=== PATIENT | male | born 1965 | race Two or more races ===

== ENCOUNTER 2024-04-02 11:55 | Emergency (ER) | payer OTHER ==
[~2024-04-02] VITALS: Ht 177.8 cm; Wt 88.9 kg
[2024-04-02] MEDS ORDERED: KETOROLAC TROMETHAMINE 30 MG VIAL IM STA (13:08)
[2024-04-02] MEDS ORDERED: DEXAMETHASONE SODIUM PHOSPHATE 4 MG/ML VIAL IM STA (13:08)
[2024-04-02] MEDS ORDERED: DEXAMETHASONE SODIUM PHOSPHATE 4 MG/ML VIAL ONE (13:38)
[2024-04-02] MEDS ORDERED: KETOROLAC TROMETHAMINE 30 MG VIAL ONE (13:38)
[2024-04-02 13:59] VITALS: BP 138/82; O2SAT 97
== END 2024-04-02 14:00 | disposition home or self-care (01) ==
LOC: ER 11:57
DX: M75.00 Adhesive capsulitis of unspecified shoulder (principal)